=== PATIENT | male | born 1975 | race Caucasian/White ===

== ENCOUNTER 2017-08-11 08:22 | Day surgery (SDC) | payer BC ==
[~2017-08-11] VITALS: Ht 172.7 cm; Wt 81.6 kg
[~2017-08-11 08:22] MED LIST: NO HOME MEDS
[2017-08-11 08:50] VITALS: BP 130/84
[2017-08-11] MEDS ORDERED: LIDOcaine 1% 30ml vial SQ ONE (09:20)
[2017-08-11] MEDS ORDERED: MORP-64 PO (10:27)
[2017-08-11] MEDS ORDERED: LORA0.5T PO (10:27)
[2017-08-11] MEDS ORDERED: ONDA4TAB9 SL (10:28)
== END 2017-08-11 10:10 | disposition home or self-care (01) ==
LOC: SSTAY O 08:22
PROVIDERS: ATTEND Radiology Diagnostic Radiology
DX: J90 Pleural effusion, not elsewhere classified (principal); Z98.890 Other specified postprocedural states
CPT/HCPCS: 32555; 76604